=== PATIENT | male | born 1995 | race Caucasian/White ===

== ENCOUNTER 2017-07-27 05:14 | Emergency (ER) | payer OTHER ==
[~2017-07-27] VITALS: Ht 175.3 cm; Wt 68.0 kg
[2017-07-27 05:15] VITALS: BP_SYST 123
[2017-07-27 05:43] VITALS: BP_SYST 123
== END 2017-07-27 05:43 ==
LOC: SED 05:14
DX: Z02.89 Encounter for other administrative examinations (principal)